=== PATIENT | male | born 1985 | race Hispanic/Latino ===

== ENCOUNTER 2017-05-23 05:37 | Emergency (ER) | payer OTHER ==
[2017-05-23 05:37] VITALS: BMI 20.4
--- NOTE | 2017-05-23 05:52 | ED PDOC ---
Arrival/HPI - General Chief Complaint: Abdominal Pain Time Seen by Provider: 05/23/17 05:50 - History of Present Illness Narrative History of Present Illness (Text): 05/23/17 06:20 32-year-old male, states he has a history of thalassemia with prior splenectomy on penicillin, also states he has a history of renal stones. Presents emergency Department with one-day duration of right sided abdominal/back discomfort. Patient states the pain comes and goes, feels like pressure, and has no relieving or exacerbating factors. Patient denies any nausea or vomiting, denies hematuria. Denies other complaints. Past Medical History - Provider Review Nursing Documentation Reviewed: Yes - Infectious Disease Hx of Infectious Diseases: None - Tetanus Immunization Tetanus Immunization: Up to Date - Past Medical History Past Medical History: No Previous - Cardiac Hx Cardiac Disorders: No - Pulmonary Hx Respiratory Disorders: No - Neurological Hx Neurological Disorder: No - HEENT Hx HEENT Disorder: No - Renal Hx Renal Disorder: No - Endocrine/Metabolic Hx Endocrine Disorders: No - Hematological/Oncological Hx Blood Disorders: Yes Hx Anemia: Yes Other/Comment: thalassemia - Integumentary Hx Dermatological Disorder: No - Musculoskeletal/Rheumatological Hx Musculoskeletal Disorders: No - Gastrointestinal Hx Gastrointestinal Disorders: No - Genitourinary/Gynecological Hx Genitourinary Disorders: No - Psychiatric Hx Psychophysiologic Disorder: No Hx Substance Use: No - Surgical History Hx Splenectomy: Yes - Anesthesia Hx Anesthesia: Yes - Suicidal Assessment Feels Threatened In Home Enviroment: No Family/Social History Family/Social History: Unknown Family HX Smoking Status: Former Smoker Hx Alcohol Use: Yes Frequency of alcohol use: Socially Hx Substance Use: No Hx Substance Use Treatment: No Allergies/Home Meds Allergies/Adverse Reactions: Allergies No Known Allergies Allergy (Verified 05/23/17 05:54) Home Medications: Home Meds Medication Instructions Recorded Confirmed Deferasirox [Exjade] 1,500 mg PO DAILY 01/04/15 05/23/17 Penicillin V Potassium [Pen-Vee K] 500 mg PO BID 01/04/15 05/23/17 Physical Exam - Physical Exam Narrative Physical Exam (Text): Constitutional: Normal. absent: Fatigue, Weight Change, Fevers Eyes: Normal ENT: Normal Respiratory: Normal absent: SOB, Cough, Sputum Cardiovascular: Normal absent: Chest pain, Palpitations, Syncope Gastrointestinal: Abdominal pain absent: Diarrhea, Nausea, Vomiting Genitourinary: Normal. absent: Dysuria, Frequency, Hematuria Musculoskeletal: Normal. absent: Arthralgias, Back Pain, Neck Pain Skin: Normal Neurological: Normal absent: Focal Weakness Endocrine: Normal Hemo/Lymphatic: Normal Psychiatric: Normal - Physical exam Patient appears age appropriate, speaking full sentences without difficulty. - Systems Exam Head: Present: Atraumatic, Normocephalic Pupils: Present: PERRL Extraocular Muscles: Present: EOMI Conjunctiva: Present: Normal Mouth: Present: Moist Mucous Membranes Neck: Present: Normal Range of Motion. No: MIDLINE TENDERNESS, Paraspinal Tenderness Respiratory/Chest: Present: Clear to Auscultation, Good Air Exchange. No: Respiratory Distress, Accessory Muscle Use, Tachypnic Cardiovascular: Present: Regular Rate and Rhythm, Normal S1, S2, Peripheral Pulses Present. No: Murmurs Abdomen: Present: Normal Bowel Sounds, No: Tenderness, Peritoneal Signs, Rebound, Guarding, Distention Back: Present: Normal Inspection. No: Midline Tenderness, Paraspinal Tenderness Upper Extremity: Present: Normal Inspection. No: Cyanosis, Edema Lower Extremity: Present: Normal Inspection. No: Edema Neurological: Present: GCS=15, Speech Normal, cranial nerves II through XII fully intact with no cerebellar abnormality, neuro-sensory fully intact. No focal neurological deficits. Skin: Present: Warm, Dry, Normal Color. No: Rashes Lymphatic: Present: OX3, NI, NC Psychiatric: Present: Alert, Oriented x 3, Normal Insight, Normal Concentration Vital Signs Reviewed: Yes Vital Signs Temp Pulse Resp BP Pulse Ox 05/23/17 06:00 98.5 F 89 16 119/75 99 Temperature: Afebrile Blood Pressure: Normal Pulse: Regular Respiratory Rate: Normal Appearance: Positive for: Well-Appearing Pain Distress: None Mental Status: Positive for: Alert and Oriented X 3 Medical Decision Making ED Course and Treatment: 05/23/17 06:28 32-year-old male with right-sided abdominal discomfort. No acute findings on physical examination. Blood work, imaging, urinalysis, medications ordered. Differential diagnoses includes but not limited to: Renal colic, nonspecific abdominal pain. 05/23/17 07:00 patient signed out to Dr. Curry in stable condition, pending labs, imaging, reeval, dispo - RAD Interpretation Radiology Orders: 05/23/17 06:07 ABD & PELVIS W/O PO OR IV CONT [CT] Stat - Medication Orders Current Medication Orders: Sodium Chloride (Sodium Chloride 0.9%) 1,000 mls @ 1,000 mls/hr IV .Q1H STA Stop: 05/23/17 07:06 Last Admin: 05/23/17 06:40 Dose: 1,000 mls/hr Discontinued Medications Ketorolac Tromethamine (Toradol) 15 mg IVP STAT STA Stop: 05/23/17 06:08 Last Admin: 05/23/17 06:40 Dose: 15 mg Disposition/Present on Arrival - Present on Arrival History of DVT/PE: No History of Uncontrolled Diabetes: No Urinary Catheter: No History of Decub. Ulcer: No History Surgical Site Infection Following: None - Disposition Condition: STABLE Forms: [email or web address] (Martiniquais)
[2017-05-23 06:01] VITALS: TEMP 98.5
[2017-05-23] MEDS ORDERED: Sodium Chloride 0.9% 1,000 ML IV STA (06:07)
[2017-05-23 06:55] LABS: HEMOGLOBIN 11.3 g/dL (14.0-18.0); MEAN CELL VOLUME 82.2 fl (80.0-105.0); MEAN CORPUSCULAR HEMOGLOBIN 27.6 pg (25.0-35.0); MEAN CORPUSCULAR HGB CONC 33.6 g/dl (31.0-37.0); MEAN PLATELET VOLUME 8.9 fl (7.0-11.0); PLATELET COUNT 692 10^3/uL (120.0-450.0); RBC 4.09 10^6/uL (3.5-6.1)
[2017-05-23 06:56] LABS: ALB/GLOB RATIO 1.2 (1.1-1.8); ALBUMIN 4.2 g/dL (3.0-4.8); ALT/SGPT 58 U/L (7-56); AST/SGOT 77 U/L (15-59); BLOOD UREA NITROGEN 22 mg/dL (7-21); CALCIUM 9.5 mg/dL (8.4-10.5); GFR AFRICAN-AMERICAN > 60; GFR NON-AFRICAN AMERICAN > 60; LIPASE 72 U/L (23-300)
[2017-05-23 06:57] LABS: WHITE BLOOD COUNT 44.4 10^3/ul (4.5-11.0)
--- NOTE | 2017-05-23 07:16 | ED PDOC ---
Physical Exam Vital Signs Reviewed: Yes Vital Signs Temp Pulse Resp BP Pulse Ox 05/23/17 06:00 98.5 F 89 16 119/75 99 Temperature: Afebrile Blood Pressure: Normal Pulse: Regular Respiratory Rate: Normal Medical Decision Making ED Course and Treatment: 05/23/17 07:16 Case endorsed to me by Dr. Pineda at 07:00, pending labs and imaging. Patient presented with right sided abdominal pain. Report Date: 05/23/17 07:35 EXAM: CT Abdomen and Pelvis Without Intravenous Contrast Dictated and Authenticated by: Linnea Garcias MD IMPRESSION: Right proximal ureteral calculus with mild hydronephrosis. 05/23/17 07:49 On re-evaluation, patient is resting comfortably and states his pain has completely resolved. I have discussed the results and plan with the patient, who expresses understanding. Patient in agreement with plan. Patient was instructed to follow up with his urologist, Dr. Deluca, or return if symptoms worsen or new concerning symptoms arise. 05/23/17 07:[address] Deluca, who states he will see patient in his office today at 11:00. - Lab Interpretations Lab Results: 05/23/17 06:15 05/23/17 06:15 Lab Results 05/23/17 07:35: Urine Color Yellow, Urine Appearance Sl cloudy, Urine pH 6.0, Ur Specific Ro[place] >= 1.030, Urine Protein 30 H, Urine Glucose (UA) Negative, Urine Ketones Negative, Urine Blood Large H, Urine Nitrate Negative, Urine Bilirubin Negative, Urine Urobilinogen 0.2, Ur Leukocyte Esterase Negative, Urine RBC Pending, Urine WBC Pending 05/23/17 06:15: Sodium 140, Potassium 3.9, Chloride 104, Carbon Dioxide 26, Anion Gap 14, BUN 22 H, Creatinine 0.8, Est GFR ( Amer) > 60, Est GFR ( Non-Af Amer) > 60, Random Glucose 113 H, Calcium 9.5, Total Bilirubin 1.0, AST 77 H, ALT 58 H, Alkaline Phosphatase 80, Total Protein 7.6, Albumin 4.2, Globulin 3.4, Albumin/Globulin Ratio 1.2, Lipase 72 05/23/17 06:15: WBC 44.4 H* D, RBC 4.09, Hgb 11.3 L, Hct 33.6 L, MCV 82.2, MCH 27.6, MCHC 33.6, RDW 17.0 H, Plt Count 692 H, MPV 8.9, Neutrophils % (Manual) Pending, Lymphocytes % (Manual) Pending, Monocytes % (Manual) Pending - RAD Interpretation Radiology Orders: 05/23/17 06:07 ABD & PELVIS W/O PO OR IV CONT [CT] Stat - Medication Orders Current Medication Orders: Discontinued Medications Sodium Chloride (Sodium Chloride 0.9%) 1,000 mls @ 1,000 mls/hr IV .Q1H STA Stop: 05/23/17 07:06 Last Admin: 05/23/17 06:40 Dose: 1,000 mls/hr Ketorolac Tromethamine (Toradol) 15 mg IVP STAT STA Stop: 05/23/17 06:08 Last Admin: 05/23/17 06:40 Dose: 15 mg - Scribe Statement The provider has reviewed the documentation as recorded by the Darwin Macias Provider Scribe Attestation: All medical record entries made by the Darwin were at my direction and personally dictated by me. I have reviewed the chart and agree that the record accurately reflects my personal performance of the history, physical exam, medical decision making, and the department course for this patient. I have also personally directed, reviewed, and agree with the discharge instructions and disposition. Disposition/Present on Arrival - Present on Arrival Any Indicators Present on Arrival: No History of DVT/PE: No History of Uncontrolled Diabetes: No Urinary Catheter: No History of Decub. Ulcer: No History Surgical Site Infection Following: None - Disposition Have Diagnosis and Disposition been Completed?: Yes Diagnosis: Ureteral colic Disposition: HOME/ ROUTINE Disposition Time: 07:49 Condition: IMPROVED Discharge Instructions (ExitCare): Renal Colic (ED) Additional Instructions: Please follow up with the urologist. Call today for an appointment. Return to the ER for any worsening symptoms or for any other concerns. Prescriptions: Hydrocodone/Acetaminophen [[place] 325 mg-5 mg] 1 tab PO Q6H PRN #8 tab PRN Reason: Pain, Severe (8-10) Ondansetron ODT [Zofran ODT] 4 mg PO Q4H PRN #10 odt PRN Reason: Nausea/Vomiting Tamsulosin [Flomax] 0.4 mg PO DAILY #4 cap Referrals: James Moss JD, MD [Primary Care Provider] - Follow up with primary Bashir Deluca MD [Staff Provider] - Follow up with primary Forms: [employer] (Icelandic)
--- NOTE | 2017-05-23 07:35 | CT ---
EXAM: CT Abdomen and Pelvis Without Intravenous Contrast CLINICAL HISTORY: 32 years old, male; Pain; Abdominal pain; Generalized; Prior surgery; Surgery date: 6+ months; Surgery type: Splenectomy; Additional info: Renal colic TECHNIQUE: Axial computed tomography images of the abdomen and pelvis without intravenous contrast. All CT scans at this facility use one or more dose reduction techniques, viz.: automated exposure control; ma/kV adjustment per patient size (including targeted exams where dose is matched to indication; i.e. head); or iterative reconstruction technique. Coronal and sagittal reformatted images were created and reviewed. EXAM DATE/TIME: 05/23/2017 6:07 AM COMPARISON: CT - ABD PELVIS W/O PO OR IV CONT 10/23/2015 11:38:56 PM FINDINGS: Lower thorax: No acute findings. ABDOMEN: Liver: Unremarkable. Gallbladder and bile ducts: Unremarkable. No calcified stones. No ductal dilation. Pancreas: Unremarkable. No ductal dilation. Spleen: Splenectomy. 1.6 cm splenule. Adrenals: Unremarkable. No mass. Kidneys and ureters: Mild right hydronephrosis secondary to a 6 mm calculus in proximal ureter. Tiny 2 mm calculus lower pole right kidney. No left-sided calculus or hydronephrosis. Stomach and bowel: Unremarkable. No dilatation of small or large bowel. No mucosal thickening. Appendix: Normal. PELVIS: Bladder: Unremarkable. No stones. Reproductive: Unremarkable as visualized. ABDOMEN and PELVIS: Intraperitoneal space: Unremarkable. No free air. No significant fluid collection. Bones/joints: No acute fracture. Soft tissues: Unremarkable. Vasculature: Unremarkable. No abdominal aortic aneurysm. Lymph nodes: No enlarged lymph nodes. IMPRESSION: Right proximal ureteral calculus with mild hydronephrosis.
[2017-05-23 07:50] LABS: URINE APPEARANCE SL CLOUDY (CLEAR); URINE BILIRUBIN NEGATIVE (NEGATIVE); URINE BLOOD LARGE (NEGATIVE); URINE COLOR YELLOW (YELLOW); URINE GLUCOSE (UA) NEGATIVE (NEGATIVE); URINE LEUKOCYTE ESTERASE NEGATIVE Leu/uL (NEGATIVE); URINE NITRATE NEGATIVE (NEGATIVE); URINE PROTEIN 30 mg/dL (<30 mg/dL); URINE UROBILINOGEN 0.2 E.U./dL (<1 E.U./dL)
[2017-05-23 07:59] LABS: URINE BACTERIA SMALL (NEG); URINE EPITHELIAL CELLS 0 - 2 /hpf (0-5); URINE RBC TNTC /hpf (0-2); URINE WBC 0 - 2 /hpf (0-6)
[2017-05-23 08:30] LABS: CORRECTED WBC 12.7 K/mm3 (4.5-11.0); EOSINOPHIL 5 % (0.0-3.0); LYMPHOCYTE 22 % (22.0-35.0); MONOCYTE 14 % (1.0-6.0); NEUTROPHIL 59 % (50.0-70.0); NUCLEATED RED BLOOD CELL 249 %
[2017-05-23 08:37] VITALS: BP 101/63; PULSE 85; RESP 15; O2SAT 98
[2017-05-23 08:41] LABS: PLATELET ESTIMATE HIGH (NORMAL)
[2017-05-23 08:42] LABS: HYPOCHROMIA SLIGHT; TARGET CELLS SLIGHT
== END 2017-05-23 08:49 | disposition home or self-care (01) ==
LOC: ED 05:37
DX: N20.1 Calculus of ureter (principal)
CPT/HCPCS: 74176; 80053; 81001; 83690; 85025; 96361; 96374; 99284; J1885; J7040